=== PATIENT | female | born 1975 | race Caucasian/White ===

== ENCOUNTER 2023-10-28 14:08 | Outpatient (CLI) | payer BC, SELFPAY ==
--- NOTE | ~2023-10-28 | MM_ITS ---
EXAMINATION: MM screening callie BI w elana HISTORY: Screening mammogram TECHNIQUE: Craniocaudal and mediolateral oblique 3-D tomosynthesis images were obtained and synthetic 2-D images were generated. CAD analysis was submitted and interpreted. COMPARISON: No prior mammogram is available for comparison at this institution. BREAST PARENCHYMAL COMPOSITION: There are scattered areas of fibroglandular density. FINDINGS: There is no evidence of suspicious mass, calcification, or architectural distortion to sugg est malignancy in either breast. IMPRESSION: 1. No mammographic evidence of malignancy. 2. Recommend routine screening mammography in one year. BI-RADS Category 1: Negative Reviewed, dictated and finalized at location A. TIONAL NURSE LVN
== END 2023-10-28 14:09 | disposition home or self-care (01) ==
LOC: ANHIMG 14:13
PROVIDERS: PCP Family Medicine; Visit Provider Physician Assistant
DX: Z12.31 Encounter for screening mammogram for malignant neoplasm of breast (principal)
CPT/HCPCS: 77063; 77067

== ENCOUNTER 2025-05-10 07:14 | Outpatient (CLI) | payer OTHER, SELFPAY ==
--- OUTSIDE RECORDS SUMMARY | 2024-04-16 09:31 | XMS_ITS | Continuity of Care Document ---
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 trachomatis, JESSICA, Pharyn 19:34:00 Negative Negative Final Performed by:Cogitoisidro Trevino ([employer]) N. gonorrhoeae, JESSICA, Pharyn 19:34:00 Negative Negative Final Performed by:[employer] Brianne Trevino ([employer]) Panel Description: Please note Final Please note 16:00:00 Comment Final The date and/o r time of collection was not indicated on therequisition as required by state and federal law. The date ofreceipt of the specimen was used as the collection date if notsupplied.Perfo rmed by:Cogitoisidro Trevino ([employer]) Panel Description: Rapid HIV Insti Final hiv 14:35:00 neg Final neg Advance Directives Directive Yes / No Effective Date File Name No Information Encounters Encounter Description Practice Location Reason(s) For Visit Diagnoses Date Provider Providers Copied on Encounter OFFICE/OUTPAT IENT VISIT, [facility], [address] [place] [address], [id number], [place] tel:[phone] [facility] outreach (chief complaint) Encounter for screening for infections with a predominantly sexual mode of transmission Nurse Nurse. . Family History Family Member Type Diagnosis Age At Onset No Information Payers Payer name Insurance type Covered constitution party ID Authoriza tiarvind(s) No Information Social History Type Description Quantity Date Captured Comments Alcohol Use Details Unknown Caffeine Use Details Unknown Tobacco Use Status No Information Smoking Status No Information Sex Female Sexual Orientation Don't Know Gender Identity Female Chief Complaint And Reason For Visit From encounter dated '04/16/2024 14:31'. outreach (chief complaint). 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 Due on due Goal Hepatitis C screening. Due o n due Goal Tdap. Due on due Goal FIT. Due on due Goal Lipid panel. Due on due Goal PAP. Due on due Goal Zoster vaccine (). Due on due Goal CT-Colonography. Due on due Goal Td vaccine. Due on due Goal FIT-DNA. Due on due Goal Unhealthy drug use screening . Due on due Goal HPV. Due on due Goal Mammogram. Due on due Goal FOBT. Due on due Goal Colonoscopy. Due on due Goal Pap/HPV testing. Due on due Goal Sigmoidoscopy. Due on due Goal Depression screening. Due on due History Of Present Illness Encounter Date Complaint History Of Prese nt Illness outreach Testing Counselo r: Specimen Collection: Miguelina Symptoms: No STI Symptoms Tests Performed: HIV Rapid - INSTI NegGC/CT - Oral Swab Not offered in mobile outreach setting: Syph Did not meet scope for testing: HCV Functional Status Date Functional Assessmen t No Information Instructions Date Instruction Additional Infor mation No Information Assessments Type Assessment Date assessment Encounter for screen ing for infections with a predominantly sexual mode of transmission Patient Care Teams Name Effective Dates (start - stop) Status Members No Information
--- NOTE | ~2025-05-10 | MM_ITS ---
EXAMINATION: MM screening callie BI w elana HISTORY: Screening mammogram TECHNIQUE: Craniocaudal and mediolateral oblique 3-D tomosynthesis images were obtained and synthetic 2-D images were generated. CAD analysis was submitted and interpreted. COMPARISON: 10/28/2023 BREAST PARENCHYMAL COMPOSITION:Not Dense. There are scattered areas of fibroglandular density. FINDINGS: No suspicious mass, calcification, or architectural distortion are identified in either breast to suggest malignancy. There has been no suspicious interval change. IMPRESSION: No mammographic evidence of malignancy. Recommend routine screening mammography in one year. BI-RADS Category 1: Negative Reviewed, dictated and finalized at location .
== END 2025-05-10 07:15 | disposition home or self-care (01) ==
PROVIDERS: PCP Nurse Practitioner; Visit Provider Obstetrics & Gynecology
DX: Z12.31 Encounter for screening mammogram for malignant neoplasm of breast (principal)
CPT/HCPCS: 77063; 77067